=== PATIENT | male | born 1995 | race Two or more races ===

== ENCOUNTER 2025-04-17 08:45 | Outpatient (RCR) | payer MEDICAID, SELFPAY ==
--- NOTE | 2025-04-17 09:10 | PTNOTE_ITS ---
PT OP Initial Eval Patient Information Outpatient Physical Therapy Treatment Date: 04/17/25 Visit Reasons: m65.4 Medical Diagnosis: M65.4 Start of Care: 04/17/25 Date of Onset: 4 months ago Smoking Status Smoking Status: Never smoker Initial Assessment Subjective: Pt is 29 yr old male who reports L wrist pain x4 months. He is R hand dominant. The pain is gone now but still hurts with some movements like batting a baseball. It doesn't limit any activities and he can exercise with the hand. 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 He is not limited in function with L hand and wrist and and doesn't need skilled therapy at this time. 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
== END 2025-05-03 23:59 | disposition home or self-care (01) ==
LOC: CPTX 08:45
PROVIDERS: PCP Student in an Organized Health Care Education/Training Program; Referring Provider Student in an Organized Health Care Education/Training Program; Visit Provider Student in an Organized Health Care Education/Training Program
DX: M65.4 Radial styloid tenosynovitis [de Quervain] (principal)
CPT/HCPCS: 97162